=== PATIENT | male | born 1980 | race African-American/Black ===

== ENCOUNTER 2016-10-19 20:36 | Emergency (ER) | payer OTHER ==
[~2016-10-19] VITALS: Ht 188 cm; Wt 106.2 kg
[~2016-10-19 20:36] MED LIST: NOHOMEMEDS; NORCO 5/3251 TABLET PO; PROCTOCORT28.35 GM PR
[2016-10-19 23:58] VITALS: BP 130/79
== END 2016-10-19 23:59 | disposition home or self-care (01) ==
LOC: EME 20:36 → EXP 20:36
DX: A64 Unspecified sexually transmitted disease (principal); F17.200 Nicotine dependence, unspecified, uncomplicated
CPT/HCPCS: 99281; 99283; J0696